=== PATIENT | male | born 1960 | race Caucasian/White ===

== ENCOUNTER 2020-10-19 04:47 | Emergency (ER) | payer OTHER, SELFPAY ==
--- NOTE | ~2020-10-19 | CT_ITS ---
EXAMINATION: CT abdomen pelvis wo con EXAM DATE: 10/19/2020 05:31 INDICATION: Right flank pain. TECHNIQUE: Spiral CT of the abdomen and pelvis was performed without contrast. Axial, coronal and sag ittal images were reviewed. The dose-length product (DLP) for this examination was 439.38 mGy-cm. T he exposure was tailored according to patient size (auto mA exposure control), and iterative reconstr uction (ASIR) was used as additional dose reduction technique. Comparison is made to prior examinatio n from 10/14/2016. FINDINGS: There is punctate left superior calyceal stone. No ureteral stones or hydronephrosis. The prostate is unremarkable. The bladder is unremarkable. The liver, spleen, adrenal glands and pancre as are unremarkable. Gallbladder is unremarkable. No biliary obstruction. There is no retroperiton eal or pelvic lymphadenopathy. There is mild scattered arteriosclerotic disease. The appendix is normal. There is mild sigmoid colonic diverticulosis. There is no adjacent inflammat ory change to suggest diverticulitis. The stomach and small bowel are unremarkable. There is expecte d amount of colonic stool. No free intraperitoneal gas. The heart is normal in size. There are n o pericardial or pleural effusions. Lower lobe granuloma. There are no osteoblastic or osteolytic l esions identified. Mild lumbar levoscoliosis. There is moderate to severe lumbar disc disease. IMPRESSION: 1. Punctate nonobstructing left calyceal stone. No acute findings. 2. Mild colonic diverticulosis. Reviewed, dictated and finalized at location A.
--- NOTE | ~2020-10-19 | XR_ITS ---
EXAMINATION: XR abdomen/kub 1V EXAM DATE: 10/19/2020 05:36 INDICATION: Right flank pain. TECHNIQUE: Frontal projection of the upper abdomen, frontal projection lower abdomen/pelvis for inter pretation. Correlation is made to CT abdomen pelvis same date. FINDINGS: There is expected amount of colonic stool and gas. No small bowel dilation, nonobstructiv e bowel gas pattern. Can't identify the punctate left calyceal stone seen on CT. There is no organ omegaly suspected. Mild lumbar levoscoliosis. Moderate to severe lumbar disc disease. Left basilar granuloma. IMPRESSION: Unremarkable abdomen x-ray exam. Reviewed, dictated and finalized at location A.
[2020-10-19 04:49] VITALS: BP 172/103; PULSE 57; RESP 18; TEMP 36.3; O2SAT 100
--- NOTE | 2020-10-19 05:09 | ED.BACK ---
HPI - Back Pain/Injury General Chief Complaint: Urogenital-Male Stated Complaint: kidney stone x 3 days Time Seen by Provider: 10/19/20 05:01 Source: patient and RN notes reviewed Mode of arrival: ambulatory Limitations: no limitations History of Present Illness HPI Narrative: This is a 59 year old male with history of seizures and kidney stones who presents for evaluation of right lower back pain. He reports constant right lower back pain for 3 days. His pain intermittently worsens. He states yesterday he has nausea and vomiting. This pain feels similar to previous episode of kidney stone. He took 1 of his ' s hydrocodone for his pain with relief yesterday. He denies fever or chills. His pain does not radiate down his leg. He does note that 3 weeks ago he had a seizure and he thinks he threw his back out then. Related Data Home Medications Medication Instructions Recorded Confirmed aspirin [Aspir-81] 10/19/20 levetiracetam PO 10/19/20 [id number]-[id number]-[id number]-vit K tablet PO 10/19/20 [Adults Multivitamin] Allergies Allergy/AdvReac Type Severity Reaction Status Date / Time acetaminophen AdvReac Unknown Nausea and Verified 10/19/20 04:51 Vomiting HYDROCODONE BIT AdvReac Unknown Nausea and Uncoded 10/19/20 04:51 Vomiting Review of Systems Review of Systems: All systems reviewed & are unremarkable except as noted in HPI and below PMFSH Past Medical History Medical History (Updated 10/20/20 @ 00:00 by Vicente Walker) Epilepsy Kidney stone Valvular heart disease Surgical History Surgical History (Updated 10/19/20 @ 05:12 by Haritha Hebert MD) H/O cardiac catheterization Social History Social History (Updated 10/19/20 @ 05:13 by Haritha Hebert MD) Smoking status: Never smoker Gender identity (if verbalized by the patient): Male Sexual Orientation (if Verbalized by the Patient): Straight or Heterosexual Exam Const: General: alert Orientation/consciousness: patient oriented x3 Other: moderate pain Resp: Effort & Inspection: normal respiratory effort and no retractions Auscultation: clear to auscultation bilaterally Cardio: Rate: regular rate Rhythm: regular rhythm Heart sounds: no murmurs GI: GI Palp: Yes Soft to palpation, No Tenderness to palpation present (GI) and No Guarding due to palpation present (GI) Auscultation: normal bowel sounds : General: Yes no CVA tenderness Skin: General skin exam: normal color Rashes: no rashes Neuro: General: patient oriented x3, moves all extremities and CN's II-XI intact bilaterally Psych: Mental Status: mental status grossly normal Affect: normal affect Course Reevaluation(s) Reevaluation #1: Patient states his pain is much improved. He has not complaints. Patient is hypertensive. On review of his records he is chronically uncontrolled. He states he stopped taking his BP meds. I stressed to patient that his BP is extremely high and he needs to start back on medication as if it remains elevated he is at risk for heart disease, CVA, kidney disease. He is asymptomatic. His back pain appears to be musculoskeletal Date: 10/19/20 Time: 06:41 Vital Signs Vital signs: Vital Signs Temperature 97.4 F L 10/19/20 04:49 Pulse Rate 57 L 10/19/20 04:49 Respiratory Rate 18 10/19/20 04:49 Blood Pressure 172/103 H 10/19/20 04:49 Pulse Oximetry 100 10/19/20 04:49 Temperature 97.4 F L 10/19/20 04:49 Pulse Rate 61 10/19/20 06:55 Respiratory Rate 14 10/19/20 06:55 Blood Pressure 171/100 H 10/19/20 06:55 Pulse Oximetry 100 10/19/20 06:55 MDM - Back Pain/Injury Lab Data Attestation: I reviewed the patient's lab results. Result diagrams: 10/19/20 05:07 10/19/20 05:07 Labs: Lab Results 10/19/20 10/19/20 10/19/20 Range/Units 05:07 05:07 05:07 WBC 8.4 (4.5-10.0) K/mm3 RBC 5.25 (4.6-6.20) M/mm3 Hgb 16.7 (14.0-18.0) g/dL Hct 49.2
[2020-10-19 05:17] LABS: Basophils Absolute Auto 0.1 K/mm3 (0.0-0.1); Basophils Percent Auto 0.6 % (0.2-1.2); Eosinophils Absolute Auto 0.1 K/mm3 (0-0.3); Eosinophils Percent Auto 1.3 % (0-4.4); Hematocrit 49.2 % (42.0-52.0); Hemoglobin 16.7 g/dL (14.0-18.0); Immature Granulocyte Absolute 0.03 K/mm3 (0.00-0.031); Immature Granulocyte Percent A 0.4 % (0-0.5); Immature Platelet Fraction Pct 10.7 % (0.9-11.2); Lymphocytes Absolute Auto 1.94 K/mm3 (0.9-3.2); Lymphocytes Percent Auto 23.2 % (18.3-44.2); Mean Corpuscular HGB Conc 33.9 g/dl (32-36); Mean Corpuscular Hemoglobin 31.8 pg (26-34); Mean Corpuscular Volume 93.7 fl (80-100); Mean Platelet Volume 11.8 fl (7.4-10.4); Monocytes Absolute Auto 0.6 K/mm3 (0.1-0.6); Monocytes Percent Auto 7.6 % (2.6-8.5); Neutrophils Absolute Auto 5.6 K/mm3 (1.3-6.7); Neutrophils Percent Auto 66.9 % (45.5-73.1); Platelet Count Result 138 k/mm3 (150-375); Red Blood Count 5.25 M/mm3 (4.6-6.20); Red Cell Distribution Width 12.7 % (11.5-14.5); White Blood Count 8.4 K/mm3 (4.5-10.0)
[2020-10-19] MEDS: HYDROmorphone HCL INJ (*CRX) 1 MG/ML SYR 0.5 MG IV PUSH (05:19)
[2020-10-19] MEDS: ONDANSETRON INJ 4 MG/2 ML VIAL IV PUSH (05:19)
[2020-10-19 05:26] LABS: Add Urine Microscopic? NO; Appearance Urine Clear (Clear); Bilirubin Urine Negative (Negative); Blood Urine Negative (Negative); Color Urine Yellow (Yellow); Glucose Urine UA Negative (Negative); Ketones Urine Negative (Negative); Leukocyte Esterase Ur Negative LEU/UL (Negative); Nitrate Urine Negative (Negative); Protein Urine Negative (Negative); Specific Grav Ur 1.019 (1.001-1.035); Urobilinogen Urine Negative mg/dL (<2.0)
[2020-10-19 05:36] LABS: Anion Gap 8 mmol/L (8-16); Blood Urea Nitrogen 19 mg/dL (9-20); Carbon Dioxide 27 mmol/L (22-30); Chloride 105 mmol/L (98-107); Estimated CRCL calculation 94 ml/min; Estimated Glomerular Filt Rate > 60; Glucose 107 mg/dL (75-110); Sodium 140 mmol/L (137-145)
[2020-10-19 06:20] VITALS: BP 192/104; PULSE 55; RESP 12; O2SAT 100
--- NOTE | 2020-10-19 06:31 | PC.NURSE ---
ERP notified of elevated :BP. No further orders at this time.
[2020-10-19 06:55] VITALS: BP 171/100; PULSE 61; RESP 14; O2SAT 100
== END 2020-10-19 06:55 | disposition home or self-care (01) ==
PROVIDERS: Emergency Provider General Practice; PCP Family Medicine Sports Medicine
DX: M54.5 Low back pain (principal); G40.909 Epilepsy, unspecified, not intractable, without status epilepticus; I38 Endocarditis, valve unspecified; I10 Essential (primary) hypertension; N20.0 Calculus of kidney
CPT/HCPCS: 36415; 74018; 74176; 80048; 81003; 85025; 85055; 96374; 96375; 99284; J1170; J2405

== ENCOUNTER 2021-09-25 14:13 | Emergency (ER) | payer OTHER, SELFPAY ==
--- NOTE | ~2021-09-25 | XR_ITS ---
XR shoulder RT min 2V 09/25/2021 14:49 Indication: Right shoulder pain Procedure: 4 views right shoulder Comparison: No prior studies for comparison. Findings: There is degenerative change of the glenohumeral joint. No fracture or traumatic malalignme nt. There is anatomic alignment. No significant soft tissue abnormality. No foreign bodies. Impression: 1: Moderate glenohumeral joint osteoarthritis. Reviewed, dictated and finalized at location A. Impression: 1: Moderate glenohumeral joint osteoarthritis.
[2021-09-25 14:36] VITALS: BP 152/91; PULSE 64; RESP 14; TEMP 36.6; O2SAT 100
--- NOTE | 2021-09-25 15:32 | ED.UPPEXIN ---
HPI - Extremity Injury (Upper) General Chief Complaint: Extremity Injury, Upper Stated Complaint: arm injury x several weeks ago Time Seen by Provider: 09/25/21 14:56 Source: patient Mode of arrival: ambulatory Limitations: no limitations History of Present Illness HPI narrative: 60 y/o male presents to the ER today for complaints of right shoulder pain for the past 3 weeks. He had a fall 3 weeks ago and landed on right shoulder. Since then he has had ongoing pain and decreased ROM. No numbnes or tingling. He has not been seen or evaluated for this problem yet. He has not taken anything for pain. Related Data Home Medications Medication Instructions Recorded Confirmed aspirin [Aspir-81] 10/19/20 levetiracetam PO 10/19/20 [id number]-vit K tablet PO 10/19/20 [Adults Multivitamin] Allergies Allergy/AdvReac Type Severity Reaction Status Date / Time acetaminophen AdvReac Unknown Nausea and Verified 10/19/20 04:51 Vomiting HYDROCODONE BIT AdvReac Unknown Nausea and Uncoded 10/19/20 04:51 Vomiting Review of Systems Constitutional: Constitutional: Denies chills, Denies fatigue, Denies fever(s) and Denies weakness Eyes: Eyes: Reports no additional eye complaints ENT: Denies dysphagia Cardiovascular: Cardiovascular: Denies chest pain and Denies rapid heart rate Respiratory: Respiratory: Denies chest congestion, Denies cough, Denies dyspnea and Denies wheezing Gastrointestinal: Gastrointestinal: Denies abdominal pain Musculoskeletal: Musculoskeletal: Denies back pain, Reports arthralgias and Denies joint swelling Integumentary/Breasts: Skin/Breast: Denies erythema and Denies rash Neurologic: Denies dizziness, Denies headache(s), Denies focal weakness and Denies numbness Psychiatric: Psychiatric: Denies anxiety and Denies depression Endocrine: Endocrine: Denies fatigue Hematologic/Lymphatic: Hematologic/Lymphatic: Reports no additional hematologic/lymphatic complaints Allergic/Immunologic: Allergic/Immunologic: Reports no additional allergic/immunologic complaints [facility] Past Medical History Medical History Epilepsy Kidney stone Valvular heart disease Surgical History Surgical History H/O cardiac catheterization Social History Social History Smoking status: Never smoker Gender identity (if verbalized by the patient): Male Sexual Orientation (if Verbalized by the Patient): Straight or Heterosexual Exam Const: General: no acute distress Orientation/consciousness: patient oriented x3 HENMT: Head: normal to inspection Eyes: Conjunctivae: conjunctivae normal Pupils: Equal, round and reactive pupils present Neck: Neck: normal visual inspection Chest: Chest palpation & inspection: normal inspection of the chest Resp: Effort & Inspection: normal respiratory effort Auscultation: clear to auscultation bilaterally Cardio: Rate: regular rate Rhythm: regular rhythm GI: GI Palp: Yes Soft to palpation, No Tenderness to palpation present (GI) and No Guarding due to palpation present (GI) : Testes: Testes normal Skin: General skin exam: normal color Rashes: no rashes Neuro: General: patient oriented x3 and moves all extremities Extrem: Other: Tenderness with palpation of right shoulder, limited ROM due to pain, no deformity, no bruising or swelling Psych: Mental Status: mental status grossly normal Affect: normal affect Attitude: cooperative Course Vital Signs Vital signs: Vital Signs Temperature 36.6 C 09/25/21 14:36 Pulse Rate 64 09/25/21 14:36 Respiratory Rate 14 09/25/21 14:36 Blood Pressure 152/91 H 09/25/21 14:36 Pulse Oximetry 100 09/25/21 14:36 Temperature 36.6 C 09/25/21 15:50 Pulse Rate 80 09/25/21 15:50 Respiratory Rate 16 09/25/21 15:5
[2021-09-25 15:50] VITALS: BP 146/88; PULSE 80; RESP 16; TEMP 36.6; O2SAT 98
== END 2021-09-25 15:52 | disposition home or self-care (01) ==
PROVIDERS: Emergency Provider Nurse Practitioner Family; PCP Family Medicine Sports Medicine
DX: S43.401A Unspecified sprain of right shoulder joint, initial encounter (principal); M19.011 Primary osteoarthritis, right shoulder; W19.XXXA Unspecified fall, initial encounter
CPT/HCPCS: 73030; 99283